=== PATIENT | female | born 1950 | race Caucasian/White ===

== ENCOUNTER 2020-02-07 16:28 | Emergency (ER) | payer OTHER ==
[2020-02-07] MEDS ORDERED: METOPROLOL TARTRATE 5 MG/5 ML INJ IV ONE (17:05)
[2020-02-07] MEDS ORDERED: ENOXAPARIN 60 MG/0.6 ML SQ ONE (17:05)
[2020-02-07 17:42] LABS: Absolute Lymphocytes (CBC) 1.8 K/uL (0.7-4.9); Basophils % 0.3 % (0-1.3); Hematocrit 45.9 % (36.0-45.0); Lymphocytes % 11.4 % (15.3-44.8); MPV 7.8 fL (7.6-11.3); RBC Red Blood Cell Count 4.95 M/uL (3.86-4.86)
[2020-02-07 17:43] LABS: ALT/SGPT 34 U/L (12-78); AST/SGOT 27 U/L (15-37); Albumin 3.1 g/dL (3.4-5.0); Alkaline Phosphatase 112 U/L (45-117); BUN Blood Urea Nitrogen 11 mg/dL (7-18); Bicarbonate 25 mmol/L (21-32); Bilirubin Direct 0.2 mg/dL (0-0.2); Bilirubin Total 0.7 mg/dL (0.2-1.0); Glucose Level 133 mg/dL (74-106); Lipase 33 U/L (73-393); Magnesium 1.8 mg/dL (1.8-2.4); NT PRO-BNP 403 pg/mL (<125); Potassium 3.5 mmol/L (3.5-5.1); Protein, Total 7.9 g/dL (6.4-8.2); Sodium Level 137 mmol/L (136-145); Thyroid Stimulating Hormone 0.067 uIU/mL (0.360-3.740); Troponin (Emerg Dept Use Only) < 0.02 ng/mL (0.0-0.045)
--- NOTE | 2020-02-07 17:44 | RAD REPORT ---
EXAM DESCRIPTION: CT - Head Brain Wo Cont - 02/07/2020 5:17 pm CLINICAL HISTORY: Right-sided weakness/dizziness COMPARISON: None TECHNIQUE: Computed axial tomography of the head was obtained. IV contrast was not requested. All CT scans are performed using dose optimization technique as appropriate and may include automated exposure control or mA/KV adjustment according to patient size. FINDINGS: Left craniotomy. 5.5 centimeter low density cystic structure within the left parietal lobe. Low-density areas througho ut the left cerebrum. The ventricles are normal in caliber. No extra-axial fluid collection is noted. No acute intracranial bleed noted. Fluid within the sinuses/ mastoids is not seen. IMPRESSION: 5.5 centimeter low-density cystic structure within the left parietal lobe. This as well as the other low-density areas may all be chronic related to the prior trauma/surgery. Without prior exams it is difficult to determine if an acute process is superimposed over chronic changes. Comparis on with prior exams would be helpful. If the patient's symptoms do not improve then MRI with contrast would be recommended
[2020-02-07 17:46] LABS: Protime INR 1.04
[2020-02-07] MEDS ORDERED: ASPIRIN 81 MG CHEWABLE TABLET ONE ×2 (18:07→18:54)
[2020-02-07] MEDS ORDERED: METOPROLOL TAR 25 MG TAB ONE (18:10)
--- NOTE | 2020-02-07 18:28 | EDPHYS ---
Physician Documentation [facility] Name: Thais Sanchez Age: 69 yrs Sex: Female : 1950 Arrival Date: 02/07/2020 Time: 16:34 Bed 2 Private MD: ED Physician Harish Smallwood HPI: 02/06 17:07 This 69 yrs old Female presents to ER via Unassigned with complaints of jr8 weakness. 17:07 The patient's problem is reported as altered mental status, confused, weakness, in the jr8 right upper extremity, in the right lower extremity, in the right side of face. Onset: The symptoms/episode began/occurred acutely, yesterday. Duration: This was a single incident. Context: symptoms became apparent yesterday, occurred at home, occurred while the patient was at rest. The symptoms are alleviated by nothing. The symptoms are aggravated by nothing. Associated signs and symptoms: The patient has no apparent associated signs or symptoms. Severity of symptoms: At their worst the symptoms were moderate in the emergency department the symptoms are unchanged. The patient has not experienced similar symptoms in the past. The patient has not recently seen a physician. 17:08 Patient came to ED today for weakness to right side of body that is not getting better. jr8 Stated that she is concerned she has had a stroke . Historical: - Allergies: 17:34 No Known Allergies; jl7 - Home Meds: 17:34 levothyroxine 137 mcg tab 1 tab once daily [Active]; jl7 - PMHx: 17:34 Hypothyroidism; Hypertension; jl7 - Immunization history:: Adult Immunizations unknown. - Social history:: Smoking status: unknown. ROS: 17:08 Eyes: Negative for injury, pain, redness, and discharge, ENT: Negative for injury, jr8 pain, and discharge, Neck: Negative for injury, pain, and swelling, Cardiovascular: Negative for chest pain, palpitations, and edema, Respiratory: Negative for shortness of breath, cough, wheezing, and pleuritic chest pain, Abdomen/GI: Negative for abdominal pain, nausea, vomiting, diarrhea, and constipation, Back: Negative for injury and pain, MS/Extremity: Negative for injury and deformity, Skin: Negative for injury, rash, and discoloration. 17:08 Neuro: Positive for numbness, weakness. Exam: 17:08 Eyes: Pupils equal round and reactive to light, extra-ocular motions intact. Lids and jr8 lashes normal. Conjunctiva and sclera are non-icteric and not injected. Cornea within normal limits. Periorbital areas with no swelling, redness, or edema. ENT: Nares patent. No nasal discharge, no septal abnormalities noted. Tympanic membranes are normal and external auditory canals are clear. Oropharynx with no redness, swelling, or masses, exudates, or evidence of obstruction, uvula midline. Mucous membranes moist. Neck: Trachea midline, no thyromegaly or masses palpated, and no cervical lymphadenopathy. Supple, full range of motion without nuchal rigidity, or vertebral point tenderness. No Meningismus. Respiratory: Lungs have equal breath sounds bilaterally, clear to auscultation and percussion. No rales, rhonchi or wheezes noted. No increased work of breathing, no retractions or nasal flaring. Abdomen/GI: Soft, non-tender, with normal bowel sounds. No distension or tympany. No guarding or rebound. No evidence of tenderness throughout. Back: No spinal tenderness. No costovertebral tenderness. Full range of motion. Skin: Warm, dry with normal turgor. Normal color with no rashes, no lesions, and no evidence of cellulitis. MS/ Extremity: Pulses equal, no cyanosis. Neurovascular intact. Full, normal range of motion. 17:08 Cardiovascular: Rate: tachycardic, Rhythm: irregularly irregular, Pulses: Pulses are 1+ in right radial artery and left radial artery. Edema: is not appreciated, JVD: is not appreciated. 17:08 ECG was reviewed by the Attending Physician. 17:08 Neuro: Orientation: to person, place \T\ time. Mentation: slow to respond, confused, Cranial nerves: CN I not tested, CN II- XII are normal as tested, visual leonard are intact. extraocular movements are intact, facial droop noted on right, with forehead spared. Nystagmus is absent. Speech is clear and appropriate. Tongue strength is normal, Cerebellar function: dysmetria is noted on the right, the patient is unable to track right heel to left lam, Motor: moves all fours, Sensation: no obvious gross deficits, Gait: not tested. seizure activity, is not displayed by the patient, Abnormal movements: there are no abnormal movements. Vital Signs: 16:34 BP 107 / 78; Pulse 167; Resp 19; Pulse Ox 97% ; Weight 61.23 kg; jl7 17:00 BP 126 / 83; Pulse 157; Resp 20; Pulse Ox 96% ; jl7 17:30 BP 124 / 72; Pulse 89; Resp 15; Pulse Ox 95% ; jl7 18:08 BP 108 / 98; Pulse 90; Resp 19; Pulse Ox 100% ; jl7 19:01 Temp 97.9(TE); jl7 20:20 BP 140 / 75; Pulse 77; Resp 18; Pulse Ox 98% on R/A; ea NIH Stroke Scale Scores: 17:08 NIHSS Score: 7 jr8 MDM: 16:41 Patient medically screened. [facility] 02/06 16:55 Order name: Basic Metabolic Panel; Complete Time: 17:48 [facility] 02/06 16:55 Order name: CBC with Diff; Complete Time: 17:48 [facility] 02/06 16:55 Order name: LFT's; Complete Time: 17:48 [facility] 02/06 16:55 Order name: Magnesium; Complete Time: 17:48 [facility] 02/06 16:55 Order name: NT PRO-BNP; Complete Time: 17:48 [facility] 02/06 16:55 Order name: PT-INR; Complete Time: 18:22 [facility] 02/06 16:55 Order name: Troponin (emerg Dept Use Only); Complete Time: 17:48 [facility] 02/06 16:55 Order name: XRAY Chest (1 view) [facility] 02/06 16:55 Order name: TSH; Complete Time: 17:48 [facility] 02/06 16:55 Order name: Urine Culture [facility] 02/06 16:55 Order name: Lipase; Complete Time: 17:48 [facility] 02/06 16:55 Order name: CT Head Brain wo Cont; Complete Time: 17:48 [facility] 02/06 17:44 Order name: Urine Dipstick--Ancillary (enter results) 02/06 16:55 Order name: EKG; Complete Time: 16:56 [facility] 02/06 16:55 Order name: Cardiac monitoring; Complete Time: 17:39 [facility] 02/06 16:55 Order name: EKG - Nurse/Tech; Complete Time: 17:39 [facility] 02/06 16:55 Order name: IV Saline Lock; Complete Time: 17:39 [facility] 02/06 16:55 Order name: Labs collected and sent; Complete Time: 17:39 [facility] 02/06 16:55 Order name: O2 Per Protocol; Complete Time: 17:39 [facility] 02/06 16:55 Order name: O2 Sat Monitoring; Complete Time: 17:39 [facility] 02/06 16:55 Order name: Urine Dipstick-Ancillary (obtain specimen); Complete Time: 17:38 [facility] EC:08 Rate is 177 beats/min. Rhythm is irregularly irregular, A fib. QRS Rison is Normal. QRS jr8 interval is normal at 76 msec. QT interval is normal at 278 msec. No Q waves. T waves are Normal. No ST changes noted. Clinical impression: Atrial Fibrillation. Interpreted by me. Reviewed by me. Administered Medications: 17:00 Drug: Metoprolol 5 mg Route: IVP; Site: right forearm; jl7 17:25 Drug: Metoprolol 5 mg Route: IVP; Site: right forearm; jl7 17:30 Follow up: Response: No adverse reaction; Cardiac rhythm changed jl7 17:50 Not Given (Physician Discretion): Lovenox 1 mg/kg Sub-Q once jr8 18:05 Drug: Aspirin 81 mg Route: PO; jl7 19:15 Follow up: Response: No adverse reaction jl7 18:05 Drug: Metoprolol 25 mg Route: PO; jl7 19:15 Follow up: Response: No adverse reaction jl7 18:44 Drug: NS 0.9% 1000 ml Route: IV; Rate: 125 ml/hr; Site: right forearm; jl7 19:15 Follow up: Response: No adverse reaction; IV Status: Infusion continued upon transfer jl7 19:00 Drug: Rocephin 1 grams Route: IV; Rate: per protocol; Site: right forearm; jl7 19:03 Follow up: Response: No adverse reaction; IV Status: Completed infusion jl7 19:13 Drug: foLIC Acid 1 mg Route: IVPB; Site: right forearm; jl7 19:15 Follow up: Response: No adverse reaction; IV Status: Completed infusion jl7 19:13 Drug: Aspirin Chewable Tablet 243 mg Route: PO; jl7 19:16 Follow up: Response: No adverse reaction jl7 Disposition: 18:26 Co-signature as Attending Physician, Harish Smallwood MD I agree with the assessment and [facility] plan of care. Disposition: 02/07/20 18:28 Transfer ordered to [facility]. Diagnosis are Cerebral infarction, Atrial fibrillation and flutter - w rvr, new onset, Urinary tract infection, site not specified, Elevated white blood cell count. - Reason for transfer: Higher level of care. - Accepting physician is dr landeros neuro. - Condition is Serious. - Problem is new. - Symptoms have improved. NIH Stroke Scale - NIH Stroke Score Date: 02/07/2020 Time: 17:08 Total Score = 7 1a. Level of Consciousness (LOC) - 0(Alert) 1b. Level of Consciousness (LOC) (Year \T\ Age) - 0(Both) 1c. LOC Commands (Open \T\ Closes Eyes/Mate Chief) - 0(Both) 2. Best Gaze (Lateral Gaze Paresis) - 0(Normal) 3. Visual Field Loss - 0(No visual loss) 4. Facial Palsy - 1(Minor Paralysis) 5a. Left Arm: Motor (10-second hold) - 0(No drift) 5b. Right Arm: Motor (10-second hold) - 2(Drift, some effort against gravity) 6a. Left Leg: Motor (5-second hold - always test supine) - 0(No drift) 6b. Right Leg: Motor (5-second hold - always test supine) - 2(Drift, some effort against gravity) 7. Limb Ataxia (finger/nose \T\ heel/lam - test with eyes open) - 2(Present in two limbs) 8. Sensory Loss (pinprick arms/legs/face) - 0(Normal) 9. Best Language: Aphasia (description/naming/reading) - 0(No aphasia) 10. Dysarthria (speech clarity - read or repeat words) - 0(Normal) 11. Extinction and Inattention (visual/tactile/auditory/spatial/personal) - 0(No abnormality) Initials: jrOmar Signatures: Dispatcher [employer] EDMS Harish Smallwood MD MD cha Roszak, Josh, PA PA jr8 Gaston Ahuja RN RN jlJacqueline Og RN RN ea Corrections: (The following items were deleted from the chart) 20:21 18:28 02/07/2020 18:28 Transfer ordered to [facility]. Diagnosis ea is Cerebral infarction; Atrial fibrillation and flutter - w rvr, new onset; Urinary tract infection, site not specified; Elevated white blood cell count. Reason for transfer: Higher level of care. Accepting physician is gaby oh. Condition is Serious. Problem is new. Symptoms have improved. tico
--- NOTE | 2020-02-07 18:28 | ER ---
Nurse's Notes [facility] Name: Thais Sanchez Age: 69 yrs Sex: Female : 1950 Arrival Date: 02/07/2020 Time: 16:34 Bed 2 Private MD: Diagnosis: Cerebral infarction;Atrial fibrillation and flutter-w rvr, new onset;Urinary tract infection, site not specified;Elevated white blood cell count Presentation: 02/06 16:34 Chief complaint: EMS states: Toned out for generalized weakness x 2 days, pt originally jl7 stated right sided weakness then later reported it was her left side. Pt is A\T\Ox4 during triage. Coronavirus screen: Proceed with normal triage. Patient denies a cough. Patient denies shortness of breath or difficulty breathing. Patient denies measured and/or subjective temperature greater than 100.4F prior to today's visit. Patient denies travel on a cruise ship or to a country the [facility] currently lists as an affected area. Patient denies contact with known and/or suspected case of COVID-19. Ebola Screen: No symptoms or risks identified at this time. Initial Sepsis Screen: Does the patient meet any 2 criteria? No. Patient's initial sepsis screen is negative. Does the patient have a suspected source of infection? No. Patient's initial sepsis screen is negative. Risk Assessment: Do you want to hurt yourself or someone else? Patient reports desire/thoughts of hurting themselves or someone else. Provider notified. Onset of symptoms was February 06, 2020. Care prior to arrival: None. 16:34 Method Of Arrival: EMS: [facility] 7 16:34 Acuity: ANGELICA 2 jl7 Triage Assessment: 16:34 General: Appears in no apparent distress. uncomfortable, Behavior is calm, cooperative, jl7 appropriate for age. Pain: Denies pain. Neuro: Level of Consciousness is awake, alert, obeys commands, confused, Oriented to person, place, time, situation, Finish Rolls Operator are weak on left Speech is normal, Facial symmetry appears normal. Cardiovascular: Patient's skin is warm and dry. Rhythm is atrial fibrillation with rapid ventricular response Chest pain is denied. Respiratory: Airway is patent Respiratory effort is even, unlabored, Respiratory pattern is regular, symmetrical. Derm: Skin is pink, warm \T\ dry. Historical: - Allergies: 17:34 No Known Allergies; jl7 - Home Meds: 17:34 levothyroxine 137 mcg tab 1 tab once daily [Active]; jl7 - PMHx: 17:34 Hypothyroidism; Hypertension; jl7 - Immunization history:: Adult Immunizations unknown. - Social history:: Smoking status: unknown. Screenin:45 The patient has not been NPO before screening. The patient is currently on the jl7 following diet: Regular The patient is alert, able to follow commands. The patient does not exhibit slurred or garbled speech The patient is not exhibiting difficulty speaking. The patient does not exhibit difficulty understanding words. The patient is able to swallow own secretions with no drooling or need for suction. Patient tolerated one teaspoon of water. No drooling, immediate coughing, gurgling, or clearing of the throat was noted. The patient tolerated 90mL of water. No drooling, immediate coughing, gurgling, or clearing of the throat was noted. The patient passed the bedside swallow screening. Oral medications may be given as ordered. Contact Physician for further diet orders. Provider notified of bedside swallow screening results: Yahir COVARRUBIAS. 17:36 Abuse screen: Denies threats or abuse. Denies injuries from another. Nutritional [facility] screening: No deficits noted. Tuberculosis screening: No symptoms or risk factors identified. Fall Risk No fall in past 12 months (0 pts). No secondary diagnosis (0 pts). IV access (20 points). Ambulatory Aid- None/Bed Rest/Nurse Assist (0 pts). Gait- Weak (10 pts.). Mental Status- Overestimates/Forgets Limitations (15 pts.). Total Meyers Fall Scale indicates High Risk Score (45 or more points). Fall prevention measures have been instituted. Side Rails Up X 2 Placed Close to Nursing Station Frequent Obs/Assessments Occuring As available patient and family educated on Fall Prevention Program and Strategies. Assessment: 16:34 General: See triage assessment. [facility] 17:45 Reassessment: MARCI Sinclair at bedside discussing results and POC. [facility] 20:17 General: Appears in no apparent distress. Behavior is appropriate for age. Pain: Denies ea pain. Neuro: Level of Consciousness is awake, alert, obeys commands, Oriented to person, place. Neuro: Reports weakness. Cardiovascular: Patient's skin is warm and dry. Respiratory: Airway is patent Respiratory effort is even, unlabored, Respiratory pattern is regular, symmetrical. Derm: Skin is pink, warm \T\ dry. 20:21 Reassessment: [facility] at facility for transfer. Report given to EMS. Pt left ED ea via stretcher per EMS. Vital Signs: 16:34 BP 107 / 78; Pulse 167; Resp 19; Pulse Ox 97% ; Weight 61.23 kg; jl7 17:00 BP 126 / 83; Pulse 157; Resp 20; Pulse Ox 96% ; jl7 17:30 BP 124 / 72; Pulse 89; Resp 15; Pulse Ox 95% ; jl7 18:08 BP 108 / 98; Pulse 90; Resp 19; Pulse Ox 100% ; jl7 19:01 Temp 97.9(TE); jl7 20:20 BP 140 / 75; Pulse 77; Resp 18; Pulse Ox 98% on R/A; ea NIH Stroke Scale Scores: 17:08 NIHSS Score: 7 jr8 ED Course: 16:34 Patient arrived in ED. aa5 16:34 Arm band placed on right wrist. jl7 16:41 Harish Smallwood MD is Attending Physician. tico 16:42 Gaston Ahuja RN is Primary Nurse. jl7 16:45 Initial lab(s) drawn, by ia, sent to lab. Urine collected: clean catch specimen, clear, jl7 josh colored, EKG done, by ED staff, reviewed by Yahir COVARRUBIAS. Inserted saline lock: 20 gauge in right forearm, using aseptic technique. Blood collected. 17:02 Yahir Hansen PA is PHCP. jr8 17:18 CT Head Brain wo Cont In Process Unspecified. EDMS 17:21 XRAY Chest (1 view) In Process Unspecified. EDMS 17:29 Triage completed. jl7 17:36 Patient has correct armband on for positive identification. Placed in gown. Bed in low jl7 position. Call light in reach. Side rails up X2. hall monitor on. Pulse ox on. NIBP on. Warm blanket given. 17:50 initiated a transfer with Alicia from the [facility] transfer [place]/ transfer denied eb due to them not having cat scan available at this time. 18:13 transfer initiated with uJlisa from the [facility]. eb 18:[address] Cox the neurologist contact finger assembler for [facility] with Dr. hector Smallwood for patient transfer consultation. 18:24 administrative approval given by Julisa Heredia Rn, patient has been accepted to [facility] Stroke [facility]/ report to be called to [phone]/ Dr. Cox has accepted the patient in transfer. 19:18 No provider procedures requiring assistance completed. Patient transferred, IV remains jl7 in place. intact, No redness/swelling at site. Administered Medications: 17:00 Drug: Metoprolol 5 mg Route: IVP; Site: right forearm; jl7 17:25 Drug: Metoprolol 5 mg Route: IVP; Site: right forearm; jl7 17:30 Follow up: Response: No adverse reaction; Cardiac rhythm changed jl7 17:50 Not Given (Physician Discretion): Lovenox 1 mg/kg Sub-Q once jr8 18:05 Drug: Aspirin 81 mg Route: PO; jl7 19:15 Follow up: Response: No adverse reaction jl7 18:05 Drug: Metoprolol 25 mg Route: PO; jl7 19:15 Follow up: Response: No adverse reaction jl7 18:44 Drug: NS 0.9% 1000 ml Route: IV; Rate: 125 ml/hr; Site: right forearm; jl7 19:15 Follow up: Response: No adverse reaction; IV Status: Infusion continued upon transfer jl7 19:00 Drug: Rocephin 1 grams Route: IV; Rate: per protocol; Site: right forearm; jl7 19:03 Follow up: Response: No adverse reaction; IV Status: Completed infusion jl7 19:13 Drug: foLIC Acid 1 mg Route: IVPB; Site: right forearm; jl7 19:15 Follow up: Response: No adverse reaction; IV Status: Completed infusion jl7 19:13 Drug: Aspirin Chewable Tablet 243 mg Route: PO; jl7 19:16 Follow up: Response: No adverse reaction jl7 Outcome: 18:28 ER care complete, transfer ordered by MD. doshi 19:18 Transferred by ground EMS to [facility], Transfer form completed. X-rays sent jl7 w/ patient. 19:18 Condition: stable 19:18 Discharge instructions given to patient, friend, Instructed on the need for transfer, Demonstrated understanding of instructions. 20:21 Patient left the ED. charbel NIH Stroke Scale - NIH Stroke Score Date: 02/07/2020 Time: 17:08 Total Score = 7 1a. Level of Consciousness (LOC) - 0(Alert) 1b. Level of Consciousness (LOC) (Year \T\ Age) - 0(Both) 1c. LOC Commands (Open \T\ Closes Eyes/Composition Professor) - 0(Both) 2. Best Gaze (Lateral Gaze Paresis) - 0(Normal) 3. Visual Field Loss - 0(No visual loss) 4. Facial Palsy - 1(Minor Paralysis) 5a. Left Arm: Motor (10-second hold) - 0(No drift) 5b. Right Arm: Motor (10-second hold) - 2(Drift, some effort against gravity) 6a. Left Leg: Motor (5-second hold - always test supine) - 0(No drift) 6b. Right Leg: Motor (5-second hold - always test supine) - 2(Drift, some effort against gravity) 7. Limb Ataxia (finger/nose \T\ heel/lam - test with eyes open) - 2(Present in two limbs) 8. Sensory Loss (pinprick arms/legs/face) - 0(Normal) 9. Best Language: Aphasia (description/naming/reading) - 0(No aphasia) 10. Dysarthria (speech clarity - read or repeat words) - 0(Normal) 11. Extinction and Inattention (visual/tactile/auditory/spatial/personal) - 0(No abnormality) Initials: jrOmar Signatures: Dispatcher [employer] EDHarish Kee MD MD cha Calderon, Audri, RN RN aa5 Yahir Hansen PA PA jr8 Leal, Jahala RN RN jl7 Jacqueline Barahona RN Meka Larson ea Corrections: (The following items were deleted from the chart) 19:14 19:13 foLIC Acid 1 mg IVPB in right antecubital jl7 jl7 02/07 07:09 06 20:17 Neuro: Reports weakness charbel barger
[2020-02-07] MEDS ORDERED: CEFTRIAXONE/SWI 1gm 1 GM/10 ML SYR ONE (18:55)
[2020-02-07] MEDS ORDERED: FOLIC ACID 5 MG/ML VIAL ONE (18:55)
[2020-02-07] MEDS ORDERED: NA CHLORIDE 0.9% 1,000 ML ONE (19:00)
--- NOTE | 2020-02-07 19:03 | RAD REPORT ---
EXAM DESCRIPTION: Arlette Single View02/07/2020 5:20 pm CLINICAL HISTORY: cough COMPARISON: none FINDINGS: 4.8 centimeters opacity mid to lower right lung Left lung appears clear of acute infiltrate. Heart is mildly to moderately enlarged IMPRESSION: 4.8 centimeter opacity mid to lower right lung may represent neoplasm or pneumonia.
[2020-02-07 20:34] VITALS: TEMP 97.9
[2020-02-07 20:36] VITALS: BP 140/75; O2SAT 98
[2020-02-07 21:04] LABS: Urine Blood TRACE (NEG); Urine Glucose NEGATIVE (NEG); Urine Protein 1+ (NEG); Urine pH 6.5 (5.0-7.0)
== END 2020-02-07 20:21 | disposition short-term general hospital (02) ==
LOC: ER 16:28
DX: I63.9 Cerebral infarction, unspecified (principal); I48.20 Chronic atrial fibrillation, unspecified; I48.92 Unspecified atrial flutter; N39.0 Urinary tract infection, site not specified; D72.829 Elevated white blood cell count, unspecified; E03.9 Hypothyroidism, unspecified; R29.707 NIHSS score 7
CPT/HCPCS: 96361; 93005 ×2; 87088; 85025; 87086; 80048; 36415; 83735; 85610; 80076; 84443; 81003; 84484; 83690; 83880; 70450; 71045; 96375; 96374; 99285; J0696; J7030; J1650